=== PATIENT | female | born 1960 | race Hispanic/Latino ===

== ENCOUNTER 2020-03-20 16:50 | Emergency (ER) | payer OTHER, SELFPAY ==
--- NOTE | ~2020-03-20 | CT_ITS ---
EXAMINATION: CT brain wo con INDICATION: Vertigo, history of stroke COMPARISON: 01/30/2018 TECHNIQUE: Standard unenhanced head CT. The dose-length product (DLP) was 605.33 mGy-cm. The mA was a djusted according to patient size. Iterative reconstruction technique was employed. FINDINGS: There is no intracranial hemorrhage, acute infarction, or abnormal mass lesion. The ventric les are normal. There is no abnormal mass effect or midline shift. The barraza-white matter differentiat ion is normal. The basal cisterns are patent. The orbits are normal. The paranasal sinuses, mastoids and calvarium are normal. IMPRESSION: 1. No acute intracranial abnormality. Reviewed, dictated and finalized at location A.
[2020-03-20 17:27] VITALS: BP 128/91; PULSE 79; RESP 18; TEMP 37.1; O2SAT 99
--- NOTE | 2020-03-20 20:15 | ED.DIZZY ---
HPI - Dizziness General Chief Complaint: Dizziness Stated Complaint: dizziness since Time Seen by Provider: 03/20/20 19:49 History of Present Illness HPI Narrative: Patient presents with her niece for vertigo for 4 days. She speaks Bengali, and initially we used the Internet box stapler, but after an interruption her niece offered to interpret for us. The patient had a stroke in 2005, without any residual. She has history of migraine headaches and frequently complains of headaches. Now she has vertigo that comes intermittently for a few minutes at a time. She has a mild headache. She has no nausea or vomiting. She has no visual changes or weakness. She has not been sick in the last couple weeks. She has no ear pain or cough. She has hypertension and takes medication for that. Her only surgery is a cholecystectomy. She does not smoke cigarettes, drink alcohol, or do drugs. She has been on the age of menopause. MD elicited complaint: dizziness and vertigo Pertinent past history: stroke Onset (ago): day(s) Timing: sudden onset and episodic Severity: mild Description: sense of movement, room spinning and off-balance Associated symptoms: denies other symptoms Related Data Allergies Allergy/AdvReac Type Severity Reaction Status Date / Time No Known Allergies Allergy Unknown Unverified 08/27/19 08:52 Review of Systems Review of Systems: Narrative: CONSTITUTIONAL: Denies fever, chills, or sweats. EYES: Denies visual changes, redness, or discharge. ENT: Denies rhinorrhea, congestion, sore throat, or otalgia. CARDIOVASCULAR: Denies chest pain, palpitations, or edema. RESPIRATORY: Denies cough or dyspnea. GASTROINTESTINAL: Denies abdominal pain, nausea, vomiting, or diarrhea. GENITOURINARY: Denies dysuria or hematuria. SKIN: Denies rash or itching. MUSCULOSKELETAL: Denies back pain, joint pain, or myalgia. NEUROLOGIC: Denies headache, numbness, or weakness. Just the dizziness. PSYCHIATRIC: Denies anxiety or depression. [facility] Past Medical History Medical History History of stroke Hypertension Vertigo Surgical History Surgical History (Updated 03/20/20 @ 20:18 by Candice Posey MD) History of cholecystectomy Social History Social History (Updated 03/20/20 @ 20:19 by Candice Posey MD) Smoking status: Never smoker Alcohol intake: never Substance use: never Exam Narrative: Exam Narrative: GENERAL: Well-appearing, well-nourished, and in no acute distress. Very pleasant HEAD: Normocephalic, atraumatic. EYES: PERRLA and EOMI. ENT: Nares clear, no rhinorrhea or epistaxis. Mucous membranes moist. NECK: Supple. CHEST: Clear to auscultation. No respiratory distress. HEART: Regular rate and rhythm. No murmur heard. Normal peripheral pulses. ABDOMEN: Soft, nontender, nondistended, normal active bowel sounds. EXTREMITIES: Normal range of motion. No edema. SKIN: Warm, dry, no rash. NEURO: No focal deficits. Alert and oriented x3. PSYCH: Normal mood and affect. Course Reevaluation(s) Reevaluation #1: Went back into check on her, and she feels entirely better. The vertigo is gone. Her niece also has vertigo and I told her that the medicine is now [id number]. Date: 03/20/20 Time: 21:02 Vital Signs Vital signs: Vital Signs Temperature 98.7 F 03/20/20 17: Pulse Rate 79 03/20/20 17:27 Respiratory Rate 18 03/20/20 17:27 Blood Pressure 128/91 H 03/20/20 17:27 Pulse Oximetry 99 03/20/20 17:27 Temperature 98.7 F 03/20/20 17:27 Pulse Rate 84 03/20/20 20:23 Respiratory Rate 18 03/20/20 20:23 Blood Pressure 126/82 03/20/20 20:23 Pulse Oximetry 95 03/20/20 20:23 MDM - Dizziness Medical Records Attestation: I reviewed the patient's medical records. Lab Data Attestation: I reviewed the patient's lab results. Result diagrams: 03/20/20 20:25 03/20/20 20:24 Labs: Lab Results 07
[2020-03-20 20:23] VITALS: BP 126/82; PULSE 84; RESP 18; O2SAT 95
[2020-03-20 20:29] LABS: Basophils Absolute Auto 0.1 K/mm3 (0.0-0.1); Basophils Percent Auto 0.8 % (0.2-1.2); Eosinophils Absolute Auto 0.6 K/mm3 (0-0.3); Eosinophils Percent Auto 6.7 % (0-4.4); Hematocrit 42.4 % (37.0-47.0); Hemoglobin 14.5 g/dL (12.0-15.0); Immature Granulocyte Absolute 0.02 K/mm3 (0.00-0.031); Immature Granulocyte Percent A 0.2 % (0-0.5); Lymphocytes Absolute Auto 2.39 K/mm3 (0.9-3.2); Lymphocytes Percent Auto 28.6 % (18.3-44.2); Mean Corpuscular HGB Conc 34.2 g/dl (32-36); Mean Corpuscular Hemoglobin 29.8 pg (26-34); Mean Corpuscular Volume 87.2 fl (80-100); Mean Platelet Volume 10.5 fl (7.4-10.4); Monocytes Absolute Auto 0.7 K/mm3 (0.1-0.6); Neutrophils Absolute Auto 4.7 K/mm3 (1.3-6.7); Neutrophils Percent Auto 55.7 % (45.5-73.1); Platelet Count Result 211 k/mm3 (150-375); Red Blood Count 4.86 M/mm3 (4.2-5.4); Red Cell Distribution Width 13.2 % (11.5-14.5); White Blood Count 8.4 K/mm3 (4.5-10.0)
[2020-03-20] MEDS: MECLIZINE HCL 25 MG TABLET PO (20:31)
[2020-03-20] MEDS: METOCLOPRAMIDE HCL INJ 10 MG/2 ML VIAL IV PUSH (20:31)
[2020-03-20] MEDS: SODIUM CHLORIDE 0.9% IV 1,000 ML 999 ML IV CONT (20:31)
[2020-03-20 20:42] LABS: Alanine Aminotransferase 61 U/L (4-35); Albumin Level 4.6 g/dL (3.5-5.1); Alkaline Phosphatase 99 U/L (38-126); Aspartate Amino Transferase 46 U/L (14-36); Bilirubin,Total 0.9 mg/dL (0.2-1.3); Blood Urea Nitrogen 14 mg/dL (7-17); Calcium 9.6 mg/dL (8.4-10.2); Carbon Dioxide 24 mmol/L (22-30); Chloride 104 mmol/L (98-107); Estimated CRCL calculation 62 ml/min; Estimated Glomerular Filt Rate > 60; Glucose 97 mg/dL (65-105); Potassium 3.6 mmol/L (3.4-5.0); Sodium 138 mmol/L (137-145)
[2020-03-20 21:32] VITALS: BP 115/88; PULSE 74; RESP 19; TEMP 36.8; O2SAT 100
== END 2020-03-20 21:34 | disposition home or self-care (01) ==
PROVIDERS: Emergency Provider Emergency Medicine; PCP Emergency Medicine
DX: R42 Dizziness and giddiness (principal); R94.5 Abnormal results of liver function studies; I10 Essential (primary) hypertension; Z86.73 Personal history of transient ischemic attack (TIA), and cerebral infarction without residual deficits
CPT/HCPCS: 36415; 70450; 80053; 85025; 96361; 96374; 99284; A9270; J2765; J7030

== ENCOUNTER 2023-06-24 16:01 | Emergency (ER) | payer MEDICAID, SELFPAY ==
[2023-06-24 16:19] VITALS: BP 130/78; PULSE 79; RESP 16; TEMP 36.8; O2SAT 99
--- NOTE | 2023-06-24 16:46 | ED.BACK ---
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 Has been taking ibuprofen and Tylenol. Denies any urinary symptoms. No CVA tenderness. No midline tenderness. Denies any injury. No loss or retention of bowel or bladder. No numbness or tingling in extremities. No saddle anesthesia. Used data migration lead Related Data Home Medications Medication Instructions Recorded Confirmed lisinopril 10 1 tablet DIRECTED 06/24/23 06/24/23 mg-hydrochlorothiazide 12.5 mg tablet Allergies Allergy/AdvReac Type Severity Reaction Status Date / Time No Known Allergies Allergy Unknown Unverified 08/27/19 08:52 Review of Systems Review of Systems: All systems reviewed & are unremarkable except as noted in HPI and below Constitutional: Constitutional: Reports no additional constitutional complaints Eyes: Eyes: Reports no additional eye complaints ENT: Reports system reviewed and no additional complaints, except as documented Cardiovascular: Cardiovascular: Reports no additional cardiovascular complaints, Denies chest pain and Denies dyspnea Respiratory: Respiratory: Reports no additional respiratory complaints, Denies chest congestion, Denies cough and Denies dyspnea Gastrointestinal: Gastrointestinal: Reports no additional gastrointestinal complaints, Denies abdominal pain, Denies nausea and Denies vomiting Musculoskeletal: Musculoskeletal: Reports as per HPI and Reports back pain (left lower) Integumentary/Breasts: Skin/Breast: Reports system reviewed and no additional complaints, except as docu Neurologic: Reports system reviewed and no additional complaints, except as documented Psychiatric: Psychiatric: Reports no additional psychiatric complaints Allergic/Immunologic: Allergic/Immunologic: Reports no additional allergic/immunologic complaints [facility] Past Medical History Medical History (Updated 06/24/23 @ 16:51 by Johana Blake APRN) History of stroke Hypertension Vertigo Surgical History Surgical History History of cholecystectomy Social History Social History Smoking status: Never smoker Alcohol intake: never Substance use: never Comments At the time of my signature, I reviewed and agree with the nursing past medical, surgical, social, and family history. There is no relevant family history pertinent to the patient complaint. Exam Const: General: cooperative, healthy appearing, comfortable, no acute distress, well developed, alert and well nourished Nutritional Appearance: well nourished and obese Orientation/consciousness: patient oriented x3 Limitations: no limitations HENMT: Head: normal to inspection Ears: hearing grossly normal bilaterally and external ears normal Face/Nose/Sinus: Normal external nose present, Normal nares present, Normal nasal mucous membranes and turbinates present, normal facial exam and face symmetric Face and sinus: normal facial exam and face symmetric Eyes: General: appearance normal, both eyes and all related structures Alignment and Position: alignment normal Periorbital: periorbital findings normal Pupils: Equal, round and reactive pupils present EOM: EOMs intact bilaterally Neck: Neck: normal visual inspection, full ROM, no lymphadenopathy and no meningeal signs Chest: Chest palpation & inspection: normal inspection of the chest Resp: Effort & Inspection: normal respiratory effort and able to speak in complete sentences Auscultation: clear to auscultation bilaterally, no crackles, no rales, no rhonch
== END 2023-06-24 16:59 | disposition home or self-care (01) ==
PROVIDERS: Emergency Provider Nurse Practitioner
DX: S39.012A Strain of muscle, fascia and tendon of lower back, initial encounter (principal); X58.XXXA Exposure to other specified factors, initial encounter; I10 Essential (primary) hypertension; Z86.73 Personal history of transient ischemic attack (TIA), and cerebral infarction without residual deficits
CPT/HCPCS: 99213; G0463

== ENCOUNTER 2023-06-25 17:39 | Emergency (ER) | payer MEDICAID, SELFPAY ==
--- NOTE | ~2023-06-25 | CT_ITS ---
EXAMINATION: CT abd pelvis lumbar w con DATE: 06/25/2023 20:48 INDICATION: L flank/lower back pain TECHNIQUE: Computed tomography (CT) of the abdomen and pelvis and lumbar spine was performed with 100 mL Omnipaque-350 intravenous contrast. Automated exposure control and iterative reconstruction techn ique were employed. The dose-length product was 763.52 mGy-cm. COMPARISON: None. FINDINGS: Lower thorax: Dependent atelectasis Liver: Diffuse fatty infiltration. Biliary/Gallbladder: Gallbladder is absent. No bile duct dilation. Pancreas: No mass or duct dilation. Spleen: Normal. Adrenals:No mass. Kidneys: No suspicious mass, obstructing stone, or hydronephrosis. Small bilateral simple cysts. GI tract: Moderate hiatal hernia. Mild antral wall edema. No small or large bowel dilation. Normal ap pendix. Mesentery/Peritoneum: No ascites, mass, or free air. Retroperitoneum: No mass. Pelvis: Pelvic organs are within normal limits. Soft Tissues: Soft tissues and body wall unremarkable. Extraspinal bones: No acute osseous finding Lumbar spine: Lumbar scoliosis. 5 nonrib-bearing lumbar-type vertebral bodies. Pedicles intact. 3 mm anterolisthesi s at L5-S1. Vertebral body heights preserved. Multilevel mild degenerative disc disease. Severe facet arthropathy at L4-5 and L5-S1. No severe central canal narrowing or neural foraminal narrowing. IMPRESSION: No acute abdominal pelvic process. Hepatic steatosis. Severe lower lumbar facet arthropathy. Reviewed, dictated and finalized at location K.
[2023-06-25 17:43] VITALS: BP 137/59; PULSE 66; RESP 20; TEMP 36.4; O2SAT 100
[2023-06-25 18:40] LABS: Basophils Absolute Auto 0.1 K/mm3 (0.0-0.1); Basophils Percent Auto 0.7 % (0.2-1.2); Eosinophils Absolute Auto 0.6 K/mm3 (0-0.3); Eosinophils Percent Auto 6.7 % (0-4.4); Hematocrit 40.2 % (37.0-47.0); Hemoglobin 13.4 g/dL (12.0-15.0); Immature Granulocyte Absolute 0.04 K/mm3 (0.00-0.031); Immature Granulocyte Percent A 0.5 % (0-0.5); Lymphocytes Absolute Auto 2.54 K/mm3 (0.9-3.2); Lymphocytes Percent Auto 29.3 % (18.3-44.2); Mean Corpuscular HGB Conc 33.3 g/dl (32-36); Mean Corpuscular Hemoglobin 29.1 pg (26-34); Mean Corpuscular Volume 87.4 fl (80-100); Mean Platelet Volume 10.6 fl (7.4-10.4); Monocytes Absolute Auto 0.7 K/mm3 (0.1-0.6); Monocytes Percent Auto 8.4 % (2.6-8.5); Neutrophils Absolute Auto 4.7 K/mm3 (1.3-6.7); Neutrophils Percent Auto 54.4 % (45.5-73.1); Platelet Count Result 221 k/mm3 (150-375); Red Cell Distribution Width 13.2 % (11.5-14.5); White Blood Count 8.7 K/mm3 (4.5-10.0)
[2023-06-25 18:50] LABS: Alanine Aminotransferase 27 U/L (6-35); Albumin Level 4.5 g/dL (3.5-5.1); Alkaline Phosphatase 80 U/L (38-126); Anion Gap 8 mmol/L (8-16); Aspartate Amino Transferase 29 U/L (14-36); Bilirubin,Total 0.9 mg/dL (0.2-1.3); Blood Urea Nitrogen 16 mg/dL (7-17); Calcium 9.5 mg/dL (8.4-10.2); Carbon Dioxide 27 mmol/L (22-30); Chloride 99 mmol/L (98-107); Estimated CRCL calculation 55 ml/min; Estimated Glomerular Filt Rate > 60; Glucose 91 mg/dL (65-110); Lipase 113 U/L (23-300); Potassium 3.2 mmol/L (3.4-5.0); Sodium 134 mmol/L (137-145)
[2023-06-25 19:14] LABS: Appearance Urine Cloudy (Clear); Bacteria Urine None Seen /hpf; Bilirubin Urine Negative (Negative); Blood Urine Trace (Negative); Color Urine Yellow (Yellow); Glucose Urine UA Negative (Negative); Hyaline Casts Urine Present /lpf; Ketones Urine Trace mg/dL (Negative); Leukocyte Esterase Ur 3+ LEU/UL (Negative); Nitrate Urine Negative (Negative); Protein Urine Negative (Negative); RBC Urine 0-2 /hpf (0-2); Specific Grav Ur 1.017 (1.001-1.035); Squamous Epithelial Cell Urine Moderate /hpf (Few); Urobilinogen Urine 0.2 mg/dL (<2.0); WBC Urine 21-50 /hpf; pH Urine 5.5 (5.0-9.0)
[2023-06-25 19:15] LABS: Add Urine Microscopic? YES
--- NOTE | 2023-06-25 19:21 | ED.BACK ---
HPI - Back Pain/Injury General Chief Complaint: Back Pain/Injury Stated Complaint: back pain Time Seen by Provider: 06/25/23 17:53 Source: patient and family Mode of arrival: ambulatory Limitations: no limitations and language barrier History of Present Illness HPI Narrative: Patient is a 63-year-old female who presents ED with report of left back pain. Patient is primarily [place]an-speaking. at bedside assisted in translation. 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 Patient reports having pain for the last 1 week. Pain is present in her left lower back. She denies significant radiation to abdomen. She has been taking ibuprofen and Tylenol without improvement. She was seen in urgent care yesterday and prescribed muscle relaxers which have also not been helping. Reports pain worse with movement. Denies known injury, heavy lifting, strenuous activity. Denies nausea, vomiting, diarrhea, constipation, fevers, dysuria, hematuria, incontinence, saddle anesthesia, weakness of lower extremities. Related Data Home Medications Medication Instructions Recorded Confirmed lisinopril 10 1 tablet DIRECTED 06/24/23 06/24/23 mg-hydrochlorothiazide 12.5 mg tablet Allergies Allergy/AdvReac Type Severity Reaction Status Date / Time No Known Allergies Allergy Unknown Verified 06/25/23 18:13 Review of Systems Review of Systems: CONSTITUTIONAL: Denies fever, chills, or sweats. GASTROINTESTINAL: Denies abdominal pain, nausea, vomiting, or diarrhea. GENITOURINARY: Denies dysuria or hematuria. MUSCULOSKELETAL: See HPI. NEUROLOGIC: Denies tingling, numbness, or weakness. All systems reviewed & are unremarkable except as noted in HPI and below PMFSH Past Medical History Medical History (Updated 06/26/23 @ 02:01 by Sonia Herbert PA-C) History of stroke Hypertension Vertigo Surgical History Surgical History History of cholecystectomy Social History Social History Smoking status: Never smoker Alcohol intake: never Substance use: never Exam Narrative: GENERAL: Well appearing, obese with BMI of 35.2, non-toxic, in no acute distress. HEAD: Normocephalic, atraumatic. NECK: Supple. No adenopathy, no masses. RESPIRATORY: Airway patent, respirations nonlabored. Clear to auscultation bilaterally, no rales, rhonchi, wheezing. CARDIOVASCULAR: Regular rate and rhythm without murmurs, rubs, or gallops. Radial pulses 2+ and equal bilaterally. ABDOMINAL: Soft, no significant tenderness throughout left-sided abdomen, nondistended, no hepatosplenomegaly. Normoactive BS. MUSCULOSKELETAL: Moves all extremities. Strength/ROM intact without gross deformities. Tenderness to palpation throughout left lumbar region, no midline spinal tenderness. No palpable deformities. SKIN: Warm, dry, normal color. No rashes. NEURO: A&O X3. Speech clear. Cranial nerves II-XII grossly intact. Steady gait. No ataxic movements. PSYCHIATRIC: Appropriate mood and affect. Normal interaction. Course Vital Signs Vital signs: Vital Signs Temperature 97.6 F 06/25/23 17:43 Pulse Rate 66 06/25/23 17:43 Respiratory Rate 20 06/25/23 17:43 Blood Pressure 137/59 L 06/25/23 17:43 Pulse Oximetry 100 06/25/23 17:43 Oxygen Delivery Room Air 06/25/23 17:43 Temperature 97.6 F 06/25/23 17:43 Pulse Rate 70 06/25/23 22:01 Respiratory Rate 16 06/25/23 22:01 Blood Pressure 118/73 06/25/23 22:01 Pulse Oximetry 99 06/25/23 22:01 Oxygen Delivery Room Air 06/25/23 17:43 MDM - Back Pain/Injury MDM Narrative Medical decision making narrative: Patient presented to ED with 1 week history of left lower back/flank pain, no other significant associated symptoms. Tried several pain modalities at home without improvement. Vital signs stable upon arrival. Patient nontoxic-appear
[2023-06-25] MEDS: MORPHINE SULFATE (*CRX) 4 MG/ML INJ IV PUSH (19:25)
[2023-06-25] MEDS: SODIUM CHLORIDE 0.9% IV 1,000 ML 999 ML IV CONT (19:25)
[2023-06-25] MEDS: ACETAMINOPHEN 500 MG TABLET 1000 MG PO (19:25)
[2023-06-25] MEDS: ONDANSETRON INJ 4 MG/2 ML VIAL IV PUSH (19:25)
[2023-06-25] MEDS: POTASSIUM CHLORIDE 20 MEQ ER TABLET 40 MEQ PO (19:25)
[2023-06-25 19:33] VITALS: PULSE 77; O2SAT 100
[2023-06-25 22:01] VITALS: BP 118/73; PULSE 70; RESP 16; O2SAT 99
== END 2023-06-25 22:03 | disposition home or self-care (01) ==
PROVIDERS: Emergency Provider Physician Assistant
DX: N30.00 Acute cystitis without hematuria (principal); S39.012A Strain of muscle, fascia and tendon of lower back, initial encounter; I10 Essential (primary) hypertension; Z86.73 Personal history of transient ischemic attack (TIA), and cerebral infarction without residual deficits; Z90.49 Acquired absence of other specified parts of digestive tract; K76.0 Fatty (change of) liver, not elsewhere classified; X58.XXXA Exposure to other specified factors, initial encounter
CPT/HCPCS: 36415; 72132; 74177; 80053; 81001; 83690; 85025; 87086; 96365; 96375; 99284; A9270; J0696; J2270; J2405; J7030; Q9967